=== PATIENT | male | born 1985 | race African-American/Black ===

== ENCOUNTER 2018-10-12 03:33 | Emergency (ER) | payer OTHER ==
[~2018-10-12] VITALS: Ht 162.6 cm; Wt 90.7 kg
[2018-10-12 04:03] LABS: ABSOLUTE NEUTROPHILS 6.4 thou/uL (1.4-8.2); BASOPHILS 0.5 % (0.0-2.0); EOSINOPHILS 0.7 % (0.0-3.0); HEMATOCRIT 48.7 % (42.0-52.0); HEMOGLOBIN 16.2 gm/dL (14.0-18.0); MCH 29.2 pg (26.0-34.0); MCHC 33.3 g/dL (28.0-37.0); MCV 87.8 fL (80.0-100.0); MONOCYTES 10.7 % (1.0-8.0); POLYS 68.1 % (36.0-66.0); RBC 5.55 mil/uL (4.50-6.00); RDW 13.8 % (10.5-14.5); WBC 9.4 thou/uL (4.0-11.0)
[2018-10-12 04:09] LABS: CALCIUM 9.7 mg/dL (8.5-10.1); CREATININE 1.6 mg/dL (0.7-1.3); POTASSIUM 3.7 mmol/L (3.5-5.1)
[2018-10-12 04:14] LABS: ALBUMIN 4.3 g/dL (3.4-5.0); DIRECT BILIRUBIN 0.2 mg/dL (<0.1-0.3); TOTAL BILIRUBIN 0.7 mg/dL (<0.1-1.0); TOTAL PROTEIN 8.2 g/dL (6.4-8.2)
[2018-10-12 04:20] LABS: PLATELET COUNT 116 thou/uL (150-400)
[2018-10-12 04:45] LABS: AMP/METHAMP Negative (Negative); BARBITURATES Negative (Negative); BENZODIAZEPINES Negative (Negative); COCAINE POSITIVE (Negative); METHADONE Negative (Negative); OPIATES Negative (Negative); PCP POSITIVE (Negative)
[2018-10-12 07:34] VITALS: BP 148/85
== END 2018-10-12 07:34 | disposition home or self-care (01) ==
LOC: ER 03:33
PROVIDERS: Student in an Organized Health Care Education/Training Program
DX: F15.20 Other stimulant dependence, uncomplicated (principal); F19.20 Other psychoactive substance dependence, uncomplicated; F14.10 Cocaine abuse, uncomplicated